=== PATIENT | female | born 1945 | race Caucasian/White ===

== ENCOUNTER → 2017-11-06 | Outpatient (CLI) | payer OTHER ==
[~2017-11-06] MED LIST: ACET-822 PO; ASPI81CH6 CHEW; BACT800T5 PO; CALC1TAB87 PO; CEPH500C3 PO; CYAN1TAB24 PO; HYDR-3288 PO; HYDR-3533 PO; LEVO.1 PO; LEVO100T5 PO; MULT-65 PO; OMEP20TA39 PO; SIMV40TA PO; SLEE25TA PO; TRAM50TA PO; TRAZ50TA12 PO; VITA100064 PO; ZOCO40TA PO; [UNRECOGNIZED DRUG - CODE] PO
== END ==
LOC: CPRE 08:59
PROVIDERS: ATTEND Orthopaedic Surgery Sports Medicine
DX: Z01.818 Encounter for other preprocedural examination (principal); M16.11 Unilateral primary osteoarthritis, right hip

== ENCOUNTER 2017-11-23 05:15 | Inpatient (IN) | payer OTHER, MEDICARE ==
[~2017-11-23] VITALS: Ht 165.1 cm; Wt 69.9 kg
[~2017-11-23 05:15] MED LIST changes: -ASPI81CH6 CHEW; -BACT800T5 PO; -CEPH500C3 PO; -HYDR-3288 PO; -HYDR-3533 PO; -LEVO.1 PO; -OMEP20TA39 PO; -ZOCO40TA PO
[2017-11-23] MEDS ORDERED: ceFAZolin 2 GM PREMIX 50 ML IV SCH (05:45)
[2017-11-23] MEDS ORDERED: SODIUM CHLORID 0.9% 500 ML IV PRN (05:45)
[2017-11-23] MEDS ORDERED: CHLORHEXIDINE GLUCONATE 2 % 1 PACK (2 CLOTHS) TOPICAL PRN (05:45)
[2017-11-23] MEDS ORDERED: VANCOMYCIN 1 GM/200 ML INJ 200 ML IV SCH (05:45)
[2017-11-23] MEDS ORDERED: POVIDONE IODINE 7.5% SCRUB 118 ML BOTTLE TOPICAL SCH (05:45)
[2017-11-23] MEDS ORDERED: METOPROLOL TARTRATE 25 MG TAB PO PRN (05:45)
[2017-11-23] MEDS ORDERED: POVIDONE IODINE 5% (ANTISEPSIS KIT) 4 APPLICATIONS EACH NARE PRN (05:45)
[2017-11-23] MEDS ORDERED: LACTATED RINGER'S 1000 ML IV PRN (05:45)
[2017-11-23] MEDS ORDERED: CHLORHEXIDINE GLUCONATE 4% SOLN 120 ML BTL TOPICAL SCH (05:45)
[2017-11-23] MEDS ORDERED: DEXAMETHASONE SOD PHOS 20 MG/5 ML VIAL IV PUSH ONE (05:45)
[2017-11-23] MEDS ORDERED: VANCOMYCIN 1000 MG/NS 250 ML (for <70 kg) IV SCH ×2 (05:45)
[2017-11-23] MEDS ORDERED: ACETAMINOPHEN 1000 MG/100 ML 100 ML IV ONE (06:17)
[2017-11-23] MEDS ORDERED: GENTAMICIN SULFATE 80 MG/2 ML VIAL ONE (06:22)
[2017-11-23] MEDS ORDERED: HYDR-3288 PO (06:53)
[2017-11-23] MEDS ORDERED: ASPI81CH6 CHEW (06:53)
[2017-11-23] MEDS ORDERED: MORPHINE SULFATE 4 MG/ML INJ IV PUSH PRN (07:00)
[2017-11-23] MEDS ORDERED: diphenhydrAMINE HCL 50 MG/ML VIAL IV PUSH PRN (07:00)
[2017-11-23] MEDS ORDERED: TRANEXAMIC ACID IV SCH (07:00)
[2017-11-23] MEDS ORDERED: EXPAREL PERI-ARTICULAR INJECTION (TOTAL VOL. 60 ML) P-ARTICULR SCH ×2 (07:00)
[2017-11-23] MEDS ORDERED: Post-op Orders (for Pharmacy) XX ONE (07:00)
[2017-11-23] MEDS ORDERED: ONDANSETRON HCL 4 MG/2 ML VIAL IVP PRN (07:00)
[2017-11-23] MEDS ORDERED: SODIUM CHLORIDE 0.9% IV SCH (07:00)
[2017-11-23] MEDS ORDERED: ACETAMINOPHEN/HYDROcodone 325 MG/10 MG TAB PO PRN (07:00)
[2017-11-23] MEDS ORDERED: TRANEXAMIC PERI-ARTICULAR 3,000 MG/NS 100 ML P-ARTICULR SCH ×2 (07:00)
[2017-11-23] MEDS ORDERED: SODIUM CHLOR 0.9% 1000 ML INJ 1,000 ML IV SCH (07:30)
[2017-11-23] MEDS ORDERED: PILL SPLITTER OTHER PRN (08:00)
[2017-11-23] MEDS ORDERED: *morphine SULFATE 8 MG/ML PERIprocedure ONLY ONE ×2 (08:58→09:04)
--- NOTE | 2017-11-23 09:01 | MP ---
cc: Jean Carlos Bhakta MD DATE OF OPERATION: 11/23/2017 PREOPERATIVE DIAGNOSIS: Right hip osteoarthritis. POSTOPERATIVE DIAGNOSIS: Right hip osteoarthritis. PROCEDURE PERFORMED: Right total hip arthroplasty. SURGEON: Jean Carlos Bhakta MD. SEMI CONDUCTOR ASSEMBLER: CLEM Barakat. ANESTHESIA: General. ESTIMATED BLOOD LOSS: 300 mL. COMPLICATIONS: None. IMPLANTS USED: DePuy Corail size 12 press fit standard offset femoral stem, size 52 solid [place] Gription cup, size 36 mm ceramic head, 36 mm neutral highly cross-linked polyethylene liner, +1.5 neck. JUSTIFICATION: This patient is a 72-year-old female who has a history of severe osteoarthritis involving the right hip. She has severe disabling pain with standing, walking, ambulation and weight-bearing activities and severe pain at rest. She has failed greater than 3 months of nonoperative conservative treatment to include medication therapy, injections, ambulatory assisted aids, home exercise program, activity modification, weight loss attempts. X-ray of the right hip revealed severe end-stage osteoarthritis with joint space narrowing, subchondral sclerosis, subchondral cyst, osteophyte formation and subluxation. The patient was counseled as to the risks, benefits and alternatives to a total hip arthroplasty. The risks were discussed, which include, but are not limited to anesthesia, bleeding, infection, damage to nerves and blood vessels, pain, stiffness, fracture dislocations, leg length discrepancy, blood clots, pulmonary embolism, and even . The patient's pain is severe. She favored the benefits over the risks and did wish to proceed with surgery. PROCEDURE IN DETAIL: Written consent was obtained. The patient identified by name, taken to the operating room and placed supine on the operating table. General anesthesia was administered, as well as 2 grams of IV Ancef, 1 gram of IV vancomycin. The right and left feet were placed in the padded traction boots. The right hip and right lower extremity prepped and draped using isopropyl alcohol, Hibiclens solution and ChloraPrep solution. After a time-out was performed, a longitudinal incision was made over the anterior aspect of the right hip. The fascial layer was incised. Dissection was carried over the tensor fascia miguelina and beneath the rectus femoris to allow exposure of the anterior hip capsule. A capsulotomy incision was performed. An oscillating saw was used to perform a femoral neck cut. The osteoarthritic femoral head and neck component was removed. A 10 blade scalpel was used to excise the labrum. Sequential reaming began at size 43 and was carried through to size 52. Subsequently, a solid [place] size 52 cup was implanted in approximately 45 degrees of abduction and 10 degrees of anteversion. There was good purchase and fixation after insertion of the cup. A screw hole eliminator was placed, followed by a neutral liner. The liner was impacted in place and tested for stability. Attention was turned to the femur where the leg was externally rotated, extended and abducted. The capsule was released off the undersurface of the greater trochanter to allow for elevation and lateralization of the femur. A box cutting osteotome used to gain entrance into the intramedullary canal of the femur. This was followed by canal finder and sequential broaching up to size 12. A calcar planer was used to plane the calcar. Trial head and neck combinations were evaluated and final components implanted. With the current components, the leg could achieve external rotation to 70 degrees and extension all the way down to the ground without evidence of anterior instability or impingement. Fluoroscopic imaging showed appropriate implantation of components. The surgical wound was thoroughly irrigated with sterile saline post lavage antibiotic impregnated solution. The fascia was closed with #1 Vicryl suture. Subcutaneous layer closed with 2-0 Vicryl suture. Skin was closed with Dermabond. A sterile dressing was applied. The patient tolerated the procedure well. No intraoperative complications noted. Cecilio Mullins, Physician Tank Hoop Bender Certified was present during the procedure to include patient positioning and the procedure itself, the medical necessity of a physician purchasing assistant was indicated in this case due to the complexity of the procedure. He assisted with appropriate manipulation of the leg with also surgical retraction of muscle, tendon, bone, and neurovascular structures. He assisted with preparation of bone and also implantation of the prosthetic replacement. Jean Carlos Bhakta MD JWLizeth/CHRISTINA , 08:38 AM , 09:00 AM
[2017-11-23] MEDS ORDERED: *morphine SULFATE 4 MG/ML PERIprocedure ONLY ONE (09:15)
--- NOTE | 2017-11-23 09:50 | RADRPT ---
EXAM DATE/TIME: 11/23/2017 09:17 [facility] COMPARISON: No previous studies available for comparison. INDICATIONS : Post-op right hip. MEDICAL HISTORY : None. SURGICAL HISTORY : Right Hip replacement ENCOUNTER: Initial ACUITY: 1 day PAIN SCORE: 10/10 LOCATION: Right Hip FINDINGS: AP and crosstable lateral views of the right hip were obtained as well as an AP view of the pelvis. T his demonstrates the patient status post right hip arthroplasty. The femoral and acetabular component s are intact and in normal alignment. There is surrounding soft tissue swelling and gas. There is mil d osteopenia. CONCLUSION: Expected postoperative changes status post arthroplasty. Sagar Mccarty MD on November 23, 2017 at 9:47 Board Certified Radiologist. This report was verified electronically.
[2017-11-23] MEDS ORDERED: DO NOT ADM ANY ANTICOAGULANT DRUGS PRN (10:00)
[2017-11-23] MEDS ORDERED: LACTATED RINGER'S 1000 ML INJ 1,000 ML IV ONE (12:00)
[2017-11-23] MEDS ORDERED: NEOSTIGMINE 5 MG/5 ML SYRINGE IV PUSH ONE (12:00)
[2017-11-23] MEDS ORDERED: ROCURONIUM INJ 50 MG/5 ML SYRINGE IV PUSH ONE (12:00)
[2017-11-23] MEDS ORDERED: LIDOCAINE HCL 1% PF 5 ML SYRINGE OTHER ONE (12:00)
[2017-11-23] MEDS ORDERED: PHENYLEPH/NS 1000 MCG/10 ML SYR IV ONE (12:00)
[2017-11-23] MEDS ORDERED: PROPOFOL 200 MG/20 ML AMP IV ONE (12:00)
[2017-11-23] MEDS ORDERED: GLYCOPYRROLATE 1 MG/5 ML SYRINGE IV PUSH ONE (12:00)
[2017-11-23] MEDS ORDERED: ONDANSETRON HCL 4 MG/2 ML VIAL IV ONE (12:00)
[2017-11-23] MEDS ORDERED: ePHEDrine/NS 25 MG/5 ML SYRINGE IV ONE (12:00)
[2017-11-23 12:10] VITALS: BP 114/54; PULSE 60; RESP 18; TEMP 97.1; O2SAT 100
--- NOTE | 2017-11-23 12:16 | RADRPT ---
EXAM DATE/TIME: 11/23/2017 06:24 [facility] COMPARISON: No previous studies available for comparison. INDICATIONS : Right anterior hip replacement. MEDICAL HISTORY : Gastroesophageal reflux disease. SURGICAL HISTORY : Tonsillectomy. Tubal ligation. ENCOUNTER: Initial ACUITY: 1 day PAIN SCORE: Non-responsive. LOCATION: Right anterior hip. FINDINGS: Fluoroscopic images during right hip arthroplasty. CONCLUSION: Right hip arthroplasty. James Montague MD on November 23, 2017 at 12:14 Board Certified Radiologist. This report was verified electronically.
[2017-11-23 13:23] VITALS: O2SAT 96
[2017-11-23 16:00] VITALS: BP 120/72; PULSE 70; RESP 18; TEMP 97.4; O2SAT 95
[2017-11-23 16:01] VITALS: O2SAT 96
[2017-11-23] MEDS ORDERED: ENALAPRILAT 2.5 MG/2 ML VIAL IV PUSH PRN (17:00)
[2017-11-23] MEDS ORDERED: RESP: ALBUTEROL 2.5 MG/IPRATROPIUM 0.5 MG NEB (PRN) NEB (17:00)
--- NOTE | 2017-11-23 17:05 | PD.CONS ---
HPI Service [facility] Consult Requested By Orthopedic surgery Reason for Consult Medical management Primary Care Physician Avelino Hinton MD Diagnoses: History of Present Illness 72 years old female with end stage OA of the right Hip who despite medical management including Intramuscular corticosteroid injection, NSAIDs and Physical therapy as well as multiple visits to the Chiropractor over the past 2 years continued to have severe right hip pain affecting her daily living of activity, including ambulation.Patient was taken to the OR and underwent Right hip Arthroplasty. Review of Systems Except as stated in HPI: all other systems reviewed are Neg Past Family Social History Allergies: Coded Allergies: diatrizoate meglumine (Unverified Allergy, Unknown, 11/23/17) gadobenic acid (Unverified Allergy, Unknown, 11/23/17) gadodiamide (Unverified Allergy, Unknown, 11/23/17) gadoteridol (Unverified Allergy, Unknown, 11/23/17) iodixanol (Unverified Allergy, Unknown, 11/23/17) iohexol (Unverified Allergy, Unknown, 11/23/17) Past Medical History OA right hip Hypothyroidism Hyperlipidemia Past Surgical History s/p right hip arthroplasty T&A Reported Medications See EMR Family History Noncontributory Social History Denies alcohol, tobacco or illicit drugs use Physical Exam Vital Signs Vital Signs Date Time Temp Pulse Resp B/P (MAP) Pulse Ox O2 Delivery O2 Flow Rate FiO2 11/23/17 16:01 96 Nasal Cannula 2.00 11/23/17 13:23 96 Nasal Cannula 2.00 11/23/17 12:10 97.1 60 18 114/54 (74) 100 11/23/17 11:54 97.7 63 15 120/56 (77) 99 Nasal Cannula 3 11/23/17 11:30 60 17 112/59 (76) 99 Nasal Cannula 3 11/23/17 11:00 54 15 117/58 (77) 99 Nasal Cannula 3 11/23/17 10:30 53 16 124/57 (79) 99 Nasal Cannula 3 11/23/17 10:00 58 16 112/55 (74) 99 Nasal Cannula 3 11/23/17 09:45 54 16 129/63 (85) 98 Nasal Cannula 3 11/23/17 09:30 62 17 123/61 (81) 98 Nasal Cannula 3 4/23/18 09:15 58 15 111/55 (73) 96 Nasal Cannula 3 11/23/17 09:00 84 15 114/56 (75) 96 Nasal Cannula 3 11/23/17 08:53 97.7 96 15 122/79 (93) 96 Nasal Cannula 3 11/23/17 06:02 97.9 66 18 143/71 (95) 95 Physical Exam GENERAL: This is a well-nourished, well-developed patient, in no apparent distress. SKIN: No rashes, ecchymoses or lesions. Cool and dry. HEAD: Atraumatic. Normocephalic. No temporal or scalp tenderness. EYES: Pupils equal round and reactive. Extraocular motions intact. No scleral icterus. No injection or drainage. ENT: Nose without bleeding, purulent drainage or septal hematoma. Throat without erythema, tonsillar hypertrophy or exudate. Uvula midline. Airway patent. NECK: Trachea midline. No JVD or lymphadenopathy. Supple, nontender, no meningeal signs. CARDIOVASCULAR: Regular rate and rhythm without murmurs, gallops, or rubs. RESPIRATORY: Clear to auscultation. Breath sounds equal bilaterally. No wheezes , rales, or rhonchi. GASTROINTESTINAL: Abdomen soft, non-tender, nondistended. No hepato-splenomegaly , or palpable masses. No guarding. MUSCULOSKELETAL: Extremities without clubbing, cyanosis, or edema. right hip repair-neurovascular intact NEUROLOGICAL: Awake and alert. Cranial nerves II through XII intact. Motor and sensory grossly within normal limits. Five out of 5 muscle strength in all muscle groups. Normal speech. Assessment and Plan Assessment and Plan 72 years old female with Right total Hip arthroplasty Management per Ortho Pain management accordingly PT to treat and eval Lovenox for DVT prophylaxis Hypothyroidism Resume Synthroid Hyperlipidemia Resume statin DVT prophylaxis: Lovenox Thank you for this consultation Code Status Full code Discussed Condition With patient James Cruz MD Nov 23, 2017 17:05
[2017-11-23] MEDS: ACETAMINOPHEN/HYDROcodone 325 MG/10 MG TAB PO PRN (17:21)
[2017-11-23] MEDS ORDERED: ZOLPIDEM TARTRATE 5 MG TAB PO PRN (21:00)
[2017-11-23] MEDS ORDERED: traZODone HCL 50 MG TAB PO SCH (21:00)
[2017-11-23] MEDS ORDERED: PRAVASTATIN SOD 80 MG TAB PO SCH (21:00)
[2017-11-23 22:06] VITALS: BP 112/53; PULSE 73; RESP 16; TEMP 98.1; O2SAT 96
[2017-11-24] MEDS: ACETAMINOPHEN/HYDROcodone 325 MG/10 MG TAB PO PRN ×4 (01:57→12:51)
[2017-11-24 02:31] VITALS: BP 124/55; PULSE 80; RESP 17; TEMP 98.8; O2SAT 97
[2017-11-24 05:38] VITALS: BP 112/56; PULSE 80; RESP 16; TEMP 98.9; O2SAT 96
[2017-11-24] MEDS ORDERED: LEVOTHYROXINE SODIUM 100 MCG TAB PO SCH (06:00)
[2017-11-24 06:01] LABS: HEMATOCRIT 28.7 % (35.0-46.0); HEMOGLOBIN 9.7 GM/DL (11.6-15.3); MEAN CELL VOLUME 88.3 FL (80.0-100.0); MEAN PLATELET VOLUME 7.5 FL (7.0-11.0); PLATELET COUNT 156 TH/MM3 (150-450); RED BLOOD COUNT 3.25 MIL/MM3 (4.00-5.30); RED CELL DISTRIBUTION WIDTH 13.9 % (11.6-17.2)
[2017-11-24 06:26] LABS: BICARBONATE 27.4 MEQ/L (21.0-32.0); CALCIUM 8.1 MG/DL (8.5-10.1); CREATININE 0.72 MG/DL (0.50-1.00)
--- NOTE | 2017-11-24 07:55 | PD.ORT.PN ---
Subjective Post Op Day #: 1 Subjective Remarks having discomfort, but just took some medication. Objective Vitals Vital Signs Date Time Temp Pulse Resp B/P (MAP) Pulse Ox O2 Delivery O2 Flow Rate FiO2 11/24/17 05:38 98.9 80 16 112/56 (74) 96 11/24/17 02:31 98.8 80 17 124/55 (78) 97 11/23/17 22:06 98.1 73 16 112/53 (72) 96 11/23/17 16:01 96 Nasal Cannula 2.00 11/23/17 16:00 97.4 70 18 120/72 (88) 95 11/23/17 13:23 96 Nasal Cannula 2.00 11/23/17 12:10 97.1 60 18 114/54 (74) 100 11/23/17 11:54 97.7 63 15 120/56 (77) 99 Nasal Cannula 3 11/23/17 11:30 60 17 112/59 (76) 99 Nasal Cannula 3 11/23/17 11:00 54 15 117/58 (77) 99 Nasal Cannula 3 11/23/17 10:30 53 16 124/57 (79) 99 Nasal Cannula 3 11/23/17 10:00 58 16 112/55 (74) 99 Nasal Cannula 3 11/23/17 09:45 54 16 129/63 (85) 98 Nasal Cannula 3 11/23/17 09:30 62 17 123/61 (81) 98 Nasal Cannula 3 11/23/17 09:15 58 15 111/55 (73) 96 Nasal Cannula 3 11/23/17 09:00 84 15 114/56 (75) 96 Nasal Cannula 3 11/23/17 08:53 97.7 96 15 122/79 (93) 96 Nasal Cannula 3 I/O 11/23/17 11/23/17 11/23/17 11/24/17 11/24/17 11/24/17 07:00 15:00 23:00 07:00 15:00 23:00 Intake Total 2150 ml Output Total 400 ml Balance 1750 ml Intake IV Total 150 ml Other 2000 ml Output Urine Total 0 ml Estimated Blood Loss 400 ml Result Diagram: 11/24/1728 11/24/17527 Objective Remarks in bed, nad dressing c/d/i neg homans nvi thigh soft Assessment & Plan Ortho Post Op Day #: 1 Problem List: Assessment and Plan s/p L RHA wbat ok to maintain dressing unless saturated lovenox, d/c on asa 81 d/c planning home with c and pt - cleared today if does well in PT f/up dr. cruz 2 weeks Jean Carlos Mullins Nov 24, 2017 07:55
--- NOTE | 2017-11-24 07:57 | HHI.DCPOC ---
Discharge Care Plan Diagnosis: (1) Primary localized osteoarthrosis, pelvic region and thigh Your Health Problems Are: Difficulty with ADL Goals to Promote Your Health * To prevent worsening of your condition and complications * To maintain your health at the optimal level Directions to Meet Your Goals Take your medications as prescribed Follow your dietary instruction Follow activity as directed Keep your appointments as scheduled Take your immunizations and boosters as scheduled If your symptoms worsen call your PCP, if no PCP go to Urgent Care Center or Emergency Room Smoking is Dangerous to Your Health. Avoid second hand smoke Call the 24-hour hour crisis hotline for domestic abuse at Jean Carlos Mullins Nov 24, 2017 07:57
--- NOTE | 2017-11-24 07:58 | HHI.FF ---
Face to Face Verification Diagnosis: (1) Primary localized osteoarthrosis, pelvic region and thigh Physical Therapy Gait training, Safety evaluation, Transfer training, bed to chair Hip: Total hip, Protocol: Right, Progress to weight bearing Right LE Weight Bearing: WB as tolerated Nursing RN: 3 days/week x 2 weeks Nursing: Dressing changes Dressing Changes: Daily dressing change I have seen patient Cheyenne Nick on 11/24/17. My clinical findings support the need for the requested home health care services because: Limited ability to care for self High risk of falls I certify that my clinical findings support that this patient is homebound because: Post-op weakness Unsteady gait/balance Jean Carlos Mullins Nov 24, 2017 07:57
[2017-11-24 08:00] VITALS: BP 119/65; PULSE 84; RESP 20; TEMP 100.3; O2SAT 98
[2017-11-24] MEDS ORDERED: ENOXAPARIN SODIUM 40 MG/0.4 ML SYRINGE SQ SCH (08:00)
[2017-11-24 09:20] VITALS: O2SAT 96
--- NOTE | 2017-11-24 10:00 | HHI.PR ---
Subjective Remarks Right total hip arthroplasty November 24, 2017-patient seen and examined, reports some right hip discomfort otherwise stable Objective Vitals Vital Signs Date Time Temp Pulse Resp B/P (MAP) Pulse Ox O2 Delivery O2 Flow Rate FiO2 11/24/17 09:20 96 21 11/24/17 08:00 100.3 84 20 119/65 (83) 98 11/24/17 05:38 98.9 80 16 112/56 (74) 96 11/24/17 02:31 98.8 80 17 124/55 (78) 97 11/23/17 22:06 98.1 73 16 112/53 (72) 96 11/23/17 16:01 96 Nasal Cannula 2.00 11/23/17 16:00 97.4 70 18 120/72 (88) 95 11/23/17 13:23 96 Nasal Cannula 2.00 11/23/17 12:10 97.1 60 18 114/54 (74) 100 11/23/17 11:54 97.7 63 15 120/56 (77) 99 Nasal Cannula 3 11/23/17 11:30 60 17 112/59 (76) 99 Nasal Cannula 3 11/23/17 11:00 54 15 117/58 (77) 99 Nasal Cannula 3 11/23/17 10:30 53 16 124/57 (79) 99 Nasal Cannula 3 11/23/17 10:00 58 16 112/55 (74) 99 Nasal Cannula 3 I/O 11/23/17 11/23/17 11/23/17 11/24/17 11/24/17 11/24/17 07:00 15:00 23:00 07:00 15:00 23:00 Intake Total 2150 ml Output Total 400 ml Balance 1750 ml Intake IV Total 150 ml Other 2000 ml Output Urine Total 0 ml Estimated Blood Loss 400 ml Result Diagram: 11/24/17 0528 11/24/17 0528 Imaging Last Impressions Hip and Pelvis X-Ray 11/23/17 0000 Signed Impressions: Service Date/Time: Thursday, November 23, 2017 09:17 - CONCLUSION: Expected postoperative changes status post arthroplasty. Sagar Mccarty MD Hip X-Ray 11/23/17 0000 Signed Impressions: Service Date/Time: Thursday, November 23, 2017 06:24 - CONCLUSION: Right hip arthroplasty. James Montague MD Objective Remarks GENERAL: NAD SKIN: Warm and dry. HEAD: Normocephalic. EYES: No scleral icterus. No injection or drainage. NECK: Supple, trachea midline. No JVD or lymphadenopathy. CARDIOVASCULAR: Regular rate and rhythm without murmurs, gallops, or rubs. RESPIRATORY: Breath sounds equal bilaterally. No accessory muscle use. GASTROINTESTINAL: Abdomen soft, non-tender, nondistended. MUSCULOSKELETAL: No cyanosis, or edema. right hip repair-neurovascularly intact BACK: Nontender without obvious deformity. No CVA tenderness. Procedures Right total hip arthroplasty A/P Assessment and Plan 72 years old female with Right total Hip arthroplasty Management per Ortho Pain management accordingly PT to treat and eval Anaidnox for DVT prophylaxis, however patient will be discharged home on aspirin 81 mg daily Hypothyroidism Continue Synthroid Hyperlipidemia Continue statin DVT prophylaxis: James Schaefer MD Nov 24, 2017 10:00
[2017-11-24] MEDS ORDERED: MULTIVITAMINS/MINERALS THERAPEUTIC TAB PO SCH (21:00)
[2017-11-24] MEDS ORDERED: DOCUSATE SODIUM 100 MG CAP PO SCH (21:00)
== END 2017-11-24 13:55 | disposition home health service (06) | DRG 470 ==
LOC: HSDI 05:15 → N06B 12:12
PROVIDERS: ADMIT Orthopaedic Surgery Sports Medicine; ATTEND Orthopaedic Surgery Sports Medicine
PROC: 0SR904A Replacement of Right Hip Joint with Ceramic on Polyethylene Synthetic Substitute, Uncemented, Open Approach (ICD-10-PCS; principal; 2017-11-23 06:44)
DX: M16.11 Unilateral primary osteoarthritis, right hip (principal); E03.9 Hypothyroidism, unspecified; E78.5 Hyperlipidemia, unspecified
CPT/HCPCS: 73502; 76000; 80048; 85027; 86850; 86900; 86901; 94150; C1776; C9290; J0131; J0690; J1100; J1580; J1650; J2270; J2370; J2405; J2710; J3010; J3370; J7030; J7120